=== PATIENT | female | born 1970 | race Caucasian/White ===

== ENCOUNTER 2017-05-13 08:15 | Observation (INO) | payer OTHER ==
--- NOTE | 2017-04-28 12:32 | DIAGNOSTIC IMAGING REPORT ---
CHEST 2 VIEWS ROUTINE CLINICAL HISTORY: PRE-OP COMPARISON STUDY: 05/27/2016 FINDINGS: Chronic basilar fibrotic change. No evidence for cardiac enlargement. Diaphragms smooth. Upper lungs are clear. IMPRESSION: Chronic change. No acute process. Electronically signed by: Nilesh Jama M.D. 04/28/2017 12:31 PM Dictated Date/Time: 04/28/2017 12:30 PM
[2017-04-28 13:09] LABS: BASO % 0.4 %; BASO ABS # 0.03 K/uL (0-0.2); COMPLETE YES; EOS % 2.8 %; HEMATOCRIT 44.6 % (37-47); IG% 0.1 %; LYMPH % 36.1 %; LYMPH ABS # 2.47 K/uL (1.2-3.4); MEAN CELL VOLUME 94.1 fL (80-100); MEAN CORPUSCULAR HEMOGLOBIN 31.4 pg (25-34); MEAN CORPUSCULAR HGB CONC 33.4 g/dl (32-36); MEAN PLATELET VOLUME 10.7 fL (7.4-10.4); MONO % 5.1 %; NEUT % 55.5 %; PLATELET COUNT 220 K/uL (130-400); RED BLOOD COUNT 4.74 M/uL (4.2-5.4); WHITE BLOOD COUNT 6.85 K/uL (4.8-10.8)
[2017-04-28 13:19] LABS: INR 1.1 (0.9-1.1); PARTIAL THROMBOPLASTIN RATIO 1.4; PROTHROMBIN TIME (PATIENT) 11.5 SECONDS (9.0-12.0)
[2017-04-28 13:20] LABS: BLOOD UREA NITROGEN 9 mg/dl (7-18); BUN/CREATININE RATIO 12.8 (10-20); CALCIUM 8.7 mg/dl (8.5-10.1); CARBON DIOXIDE 28 mmol/L (21-32); CHLORIDE 105 mmol/L (98-107); CREATININE 0.72 mg/dl (0.60-1.20); GLUCOSE 123 mg/dl (70-99); POTASSIUM 3.8 mmol/L (3.5-5.1); SODIUM 139 mmol/L (136-145)
[2017-04-28 13:28] LABS: URINE APPEARANCE CLEAR (CLEAR); URINE BILIRUBIN NEG (NEG); URINE COLOR DK YELLOW; URINE NITRITE NEG (NEG); URINE SPECIFIC GRAVITY 1.027 (1.000-1.030); UROBILINOGEN NEG (NEG)
[2017-04-28 13:29] LABS: MANUAL MICROSCOPIC REQUIRED? NO; REVIEW REQ? NO
[2017-05-10 12:10] VITALS: BMI 46.0
[2017-05-10 12:25] VITALS: BMI 46.0
[2017-05-13] VITALS (9 sets, daily range): BP systolic 116–157; BP diastolic 66–85; PULSE 67–91; TEMP 36.5–36.7; O2SAT 90–96; Ht 172.7 cm; Wt 136.4 kg
[~2017-05-13] VITALS: Ht 172.7 cm; Wt 136.4 kg
[~2017-05-13 08:15] MED LIST: ABL10 PO; CEFAZOLIN 3000 MG/65 ML D5W 65 ML IV SCH; CHOL1000 PO; CLON0.5T3 PO; CLON1TAB3 PO; FLUO20CA35 PO; GABA-113 PO; GLIP-197 PO; LACTATED RINGER'S 1000ML 1,000 ML IV SCH; LIRA18IN INJ; METH500T37 PO; NAPR-998 PO; NAPR1TAB9 PO; NSS 1000ML IV SCH; OMEG10007 PO; PANT40TA PO; SCOPOLAMINE 1.5 MG TDSY TD SCH; SITA100T3 PO
[2017-05-13] MEDS ORDERED: KETAMINE HCL INJ 50 MG/ML 10 ML VIAL ONE (08:53)
[2017-05-13] MEDS ORDERED: MIDAZOLAM HCL 1 MG/ML 2ML VIAL ONE (08:53)
[2017-05-13] MEDS ORDERED: HYDROmorphone INJ 2 MG/ML SYR/VIAL ONE (08:53)
[2017-05-13] MEDS ORDERED: FENTANYL CITRATE INJ 50 MCG/1 ML 2 ML VIAL ONE (08:53)
[2017-05-13] MEDS ORDERED: NURSING VERBAL MED ORDER ONE (10:00)
[2017-05-13] MEDS ORDERED: SCOPOLAMINE 1.5 MG TDSY TD ONE (10:01)
[2017-05-13] MEDS ORDERED: THROMBIN FOR SOLN 20000 UNIT KIT ONE ×2 (10:11→11:09)
[2017-05-13] MEDS ORDERED: GELATIN SPONGE SZ 100 ONE ×2 (10:11→11:09)
[2017-05-13] MEDS ORDERED: VANCOMYCIN HCL 1000MG/20ML VIAL ONE (10:11)
--- NOTE | 2017-05-13 10:11 | History and Physical ---
History & Physical Date May 13, 2017. Chief Complaint Back lower extremity difficulty paresthesias numbness tingling weakness History of Present Illness The patient is a 47 year old female with complaints of her extremity weakness paresthesias loss of sensation and loss of strength to lower extremities. A progressive neurological deficit Additional History Hepatic Disease: No Endocrine Disorder: Yes Kidney Disease: No Hypertension: Yes Heart Disease: No Bleeding Tendencies: No Infectious Diseases: No Allergies Coded Allergies: Adhesives (Verified Allergy, Intermediate, RASH BLISTERS (INCLUDES PAPER TAPE), 05/13/17) NO KNOWN DRUG ALLERGIES (Verified Allergy, Unknown, NKDA, 05/13/17) Home Medications Scheduled Aripiprazole (Abilify), 1 TAB PO QPM Cholecalciferol (Vitamin D3), 1 TAB PO QAM Clonazepam (Klonopin), 0.5 MG PO QAM Clonazepam (Klonopin), 1.5 MG PO QPM Fluoxetine (Prozac), 20 MG PO QAM Glipizide (Glipizide Er), 10 MG PO QAM Liraglutide (Victoza), 0.6 MG INJ QAM Naproxen (Aleve), 220 MG PO PRN Naproxen Sodium-Diphenhydramin (Aleve Pm 220-25 mg), 2 TAB PO HS Pantoprazole (Protonix), 40 MG PO QAM Sitagliptin Phosphate (Januvia), 100 MG PO QAM Scheduled PRN Gabapentin (Neurontin), 300 MG PO BID PRN for PRN Methocarbamol (Robaxin), 500 MG PO TID PRN for Muscle Spasms Physical Examination Skin: warm/dry, no rash Eyes: normal inspection ENT: normal ENT inspection Head: normocephalic Neck: no adenopathy Respiratory/Chest: lungs clear Cardiovascular: regular rate, rhythm Abdomen / GI: normal bowel sounds Back: normal inspection Extremities: + pertinent finding (extremity weakness in the quadriceps area dorsiflexes her feet plantar fracture flexors of feet and hamstrings sensation. Decreased reflexes to the knee jerk and Achilles reflexes bilaterally) Diagnosis Severe spinal stenosis of the lumbar spine from L3 to S1 ASA Classification: ASA Class III Plan of Treatment Decompression laminectomy lumbar spine L3 to S1 under general anesthetic
[2017-05-13] MEDS ORDERED: BACITRACIN 50000 UNIT VIAL ONE (10:12)
[2017-05-13] MEDS ORDERED: ACETAMINOPHEN 1000 MG/100 ML IV IV ONE (10:12)
[2017-05-13] MEDS ORDERED: BUPIVACAINE 0.5 % 5 MG/1 ML MPF 30ML VIAL ONE (10:13)
--- NOTE | 2017-05-13 10:20 | History & Physical Bridge Note ---
H&P Re-Evaluation Bridge Note: I have examined the patient, reviewed the History & Physical and in the interval since the performance of the History & Physical I have noted the following changes of clinical significance: No changes noted; The procedure will be: Laminectomy L3-S1 as scheduled possible fusion.
[2017-05-13] MEDS ORDERED: PHENYLEPHRINE 100MCG/ML 5ML SYR IV PRN (11:00)
[2017-05-13] MEDS ORDERED: NALOXONE HCL 0.4 MG/1 ML VIAL/CARP IV PRN (11:00)
[2017-05-13] MEDS ORDERED: HYDROmorphone INJ 1 MG/ML SYR IV PRN ×2 (11:00→12:45)
[2017-05-13] MEDS ORDERED: EpHEDrine SULFATE INJ 50 MG/ML AMP IV PRN (11:00)
[2017-05-13] MEDS ORDERED: ONDANSETRON INJ 2 MG/ML 2 ML VIAL IV PRN ×2 (11:00→12:45)
[2017-05-13] MEDS ORDERED: MoRPHine SULFATE 10 MG/ML CARP/VIAL IV PRN (11:00)
[2017-05-13] MEDS ORDERED: LABETALOL HCL IV 5 MG/ML 20ML IV PRN (11:00)
[2017-05-13] MEDS ORDERED: MEPERIDINE HCL 25 MG/ML CARP IV PRN (11:00)
[2017-05-13] MEDS ORDERED: FLUMAZENIL 0.1 MG/1 ML 10 ML VIAL IV PRN (11:00)
[2017-05-13] MEDS ORDERED: ATROPINE SULFATE 0.1 MG/ML 5ML SYR IV PRN (11:00)
[2017-05-13] MEDS ORDERED: PROPOFOL IV EMULSION 10 MG/ML 20 ML VIAL IV ONE (11:43)
[2017-05-13] MEDS ORDERED: ONDANSETRON INJ 2 MG/ML 2 ML VIAL ONE (11:43)
[2017-05-13] MEDS ORDERED: SUCCINYLCHOLINE CHLORIDE 20 MG/ML 10 ML VIAL IV ONE (11:43)
[2017-05-13] MEDS ORDERED: NEOSTIGMINE METHYLSULFATE 5 MG/5 ML SYR ONE (11:43)
[2017-05-13] MEDS ORDERED: ROCURONIUM BROMIDE 10 MG/ML 5 ML VIAL ONE (11:43)
[2017-05-13] MEDS ORDERED: DiphenhydrAMINE HCL 50 MG/ML VIAL ONE (11:43)
[2017-05-13] MEDS ORDERED: DEXAMETHASONE SOD INJ 4 MG/ML VIAL ONE (11:43)
[2017-05-13] MEDS ORDERED: LIDOCAINE HCL 2% 2 ML VIAL (20MG/ML) ONE (11:43)
[2017-05-13] MEDS ORDERED: GLYCOPYRROLATE INJ 0.2 MG/ML VIAL ONE (11:43)
[2017-05-13] MEDS ORDERED: PHENYLEPHRINE HCL INJ 10 MG/ML VIAL ONE (11:43)
[2017-05-13] MEDS ORDERED: METOCLOPRAMIDE HCL INJ 5 MG/ML 2 ML VIAL ONE (11:43)
[2017-05-13] MEDS ORDERED: LARYING-O-JET KIT (LTA) ONE ×2 (12:12)
[2017-05-13] MEDS ORDERED: MAGNESIUM HYDROXIDE SUSP 30 ML UDC PO PRN (12:45)
[2017-05-13] MEDS ORDERED: PROMETHAZINE HCL INJ 12.5 MG in SODIUM CHLORIDE 0.9% 50ML 50 ML IV PRN (12:45)
[2017-05-13] MEDS ORDERED: HYDROmorphone INJ 2 MG/ML SYR/VIAL IV PRN (12:45)
[2017-05-13] MEDS ORDERED: LORAZEPAM 1 MG TAB PO PRN (12:45)
[2017-05-13] MEDS ORDERED: LORAZEPAM INJ 1 MG in SYRINGE 0 ML IV PRN (12:45)
[2017-05-13] MEDS ORDERED: OXYCODONE/ACETAMINOPHEN 5-325 TAB PO PRN (12:45)
[2017-05-13] MEDS ORDERED: ACETAMINOPHEN 325 MG TAB PO PRN (12:45)
[2017-05-13] MEDS ORDERED: METOCLOPRAMIDE HCL INJ 5 MG/ML 2 ML VIAL IV PRN (12:45)
--- NOTE | 2017-05-13 12:53 | [facility] Operative Report ---
Operative Report Operative Date May 13, 2017. Pre-Operative Diagnosis Severe spinal stenosis of the lumbar spine from L3 to S1 Post-Operative Diagnosis Severe spinal stenosis of the lumbar spine from L3 to S1 Procedure(s) Performed L3-L4, L4-L5, L5-S1 Laminectomy and Fusion; [address] Geraldo Michael Last Model Department Supervisor Surgeon(s) Leonard Scott PA-C Estimated Blood Loss 340mL Findings Severe stenosis L3 to S1 Specimens None Drains one Hemovac drain Complication(s) None No complications Disposition Recovery Room / PACU Indications Severe spinal stenosis inability to ambulate without pain swelling legs giving way Description of Procedure She was taken to the operating room and general intubated anesthetic provided the patient placed prone on the Robi table. Scrubbed and prepped draped sterile. Middle midline incision from 3 to sacrum dissecting a soft tissue putting a deep self retraining retractor. We decompressed the neural elements L3 down to sacrum foraminotomies partial facetectomies all nerve roots were free of obstruction. There were no complications. Probed each and every nerve root there was no pressure. Irrigated with approximately 800 mL of fluid from a prophylactic measure placed DuraSeal on the dura Gelfoam vancomycin powder Clozaril Hemovac drain with 20 with 1 Vicryl suture to THE SUBCUTICULAR LAYER 3-0 NYLON ON THE SKIN. STERILE DRESSINGS APPLIED RETURNED TO PACU PROVED STABLE CONDITION AND NO COMPLICATIONS SPONGE AND NEEDLE COUNT CORRECT AT THE CLOSE I attest to the content of the Intraoperative Record and any orders documented therein. Any exceptions are noted below.
[2017-05-13] MEDS ORDERED: GABAPENTIN 300 MG CAP PO PRN (13:00)
--- NOTE | 2017-05-13 13:16 | DIAGNOSTIC IMAGING REPORT ---
SPINE ONE VIEW, ANY LEVEL HISTORY: Laminectomy. Fusion.. FLUOROSCOPY TIME: 4 seconds. FINDINGS: Intraoperative fluoroscopy was provided for the lumbar spine. 2 fluoroscopic spot images were obtained. IMPRESSION: Fluoroscopy provided for a lumbar laminectomy. The above report was generated using voice recognition software. It may contain grammatical, syntax or spelling errors. Electronically signed by: Nilesh Jama M.D. 05/13/2017 1:15 PM Dictated Date/Time: 05/13/2017 1:14 PM
[2017-05-13] MEDS ORDERED: NALOXONE HCL 0.4 MG/1 ML VIAL/CARP ONE (13:20)
[2017-05-13] MEDS ORDERED: IV FLUIDS COMPLETED PRN (14:00)
--- NOTE | 2017-05-13 14:04 | Anesthesiology Progress Note ---
Anesthesia Post Op Note Date & Time May 13, 2017 at 14:04 Vital Signs Pain Intensity: 1 Vital Signs Past 12 Hours Date Time Temp Pulse Resp B/P (MAP) Pulse Ox O2 Delivery O2 Flow Rate FiO2 05/13/17 13:55 36.9 93 16 141/69 94 Nasal Cannula 4 05/13/17 13:45 36.9 90 16 134/90 94 Nasal Cannula 4 05/13/17 13:30 88 16 126/88 94 Mask 10 05/13/17 13:20 91 16 139/94 95 Mask 15 05/13/17 13:10 88 16 150/88 100 Mask 15 05/13/17 13:01 36.5 89 16 169/88 100 Mask 15 05/13/17 09:15 36.7 84 20 157/85 92 Room Air Notes Mental Status: alert / awake / arousable, participated in evaluation Pt Amnestic to Procedure: Yes Nausea / Vomiting: adequately controlled Pain: adequately controlled Airway Patency, RR, SpO2: stable & adequate BP & HR: stable & adequate Hydration State: stable & adequate Anesthetic Complications: no major complications apparent
[2017-05-13] MEDS: SODIUM CHLORIDE 0.9% 1000ML 1,000 ML IV SCH (15:04)
[2017-05-13] MEDS: KETOROLAC TROMETHAMINE 30 MG/ML VIAL IV SCH ×2 (15:32→21:22)
[2017-05-13] MEDS ORDERED: CHECK SCOPOLAMINE PATCH PLACEMENT SCH (16:00)
[2017-05-13] MEDS: CEFAZOLIN IV 1,000 MG in DEXTROSE 5% 50ML 50 ML IV SCH (18:15)
--- NOTE | 2017-05-13 18:57 | Medical Consult ---
Consultation Date of Consultation: May 13, 2017. Attending Physician: Geraldo Michael DO Reason for Consultation: Medical Management History of Present Illness Ms. Devlin is a 47 y/o female with PMHx of T2DM, Depression/Anxiety, S/P Partial Hysterectomy, and Possible Hemorrhoids who is S/P Laminectomy and Fusion of L3-S1 by Dr. Michael on 05/13. No complications during the surgery noted. Patient reports some nausea early but currently resolved and is currently eating dinner. She is alert and oriented but is drowsy. She reports no pain but has bilateral numbness down her legs with the R worse then the L. She denies all other complaints. She reports she has had rectal bleeding in the past and continues to have this intermittently. Stated she has had unremarkable colonoscopies and thinks she just has hemorrhoids. She also had a partial hysterectomy due to menorrhagia/metrorrhagia. She has had intermittent high BPs but denies official diagnosis of HTN or being prescribed anti-hypertensives. She denies H/O DC, CHF, DVT/PE. Past Medical/Surgical History 1. T2DM 2. Depression/Anxiety 3. S/P Partial Hysterectomy 4. S/P Cholecystectomy 5. Hemorrhoids Family History Diabetes mellitus Hypertension Social History Smoking Status: Current Every Day Smoker Smokeless Tobacco Use: No Alcohol Use: socially Drug Use: none Marital Status: single Housing Status: lives alone Allergies Coded Allergies: Adhesives (Verified Allergy, Intermediate, RASH BLISTERS (INCLUDES PAPER TAPE), 05/13/17) NO KNOWN DRUG ALLERGIES (Verified Allergy, Unknown, NKDA, 05/13/17) Current Inpatient Medications Current Inpatient Medications Medications (Trade) Dose Ordered Sig/Basilio Route Start Time Stop Time Status Last Admin Dose Admin Miscellaneous (Remove Transderm-Scop Patch) 1 ea Q72H N/A 05/16/17 06:00 05/16/17 06:01 Miscellaneous Information (Check Scopolamine Patch Placement) 1 ea QS N/A 05/13/17 16:00 05/13/17 23:59 05/13/17 15:32 1 EA Acetaminophen (Tylenol Tab) 650 mg Q6H PRN PO 05/13/17 12:45 06/12/17 12:44 Hydromorphone HCl (Dilaudid Inj) 1 mg Q3H PRN IV 05/13/17 12:45 05/27/17 12:44 Hydromorphone HCl (Dilaudid Inj) 1.5 mg Q3H PRN IV 05/13/17 12:45 05/27/17 12:44 Ketorolac Tromethamine (Toradol Inj) 30 mg Q6H IV 05/13/17 16:00 05/14/17 16:01 05/13/17 15:32 30 MG Promethazine HCl 12.5 mg/Sodium Chloride 50.5 ml @ 202 mls/hr Q6H PRN IV 05/13/17 12:45 06/12/17 12:44 Ondansetron HCl (Zofran Inj) 4 mg Q6H PRN IV 05/13/17 12:45 06/12/17 12:44 05/13/17 15:33 4 MG Metoclopramide HCl (Reglan Inj) 10 mg Q6H PRN IV 05/13/17 12:45 06/12/17 12:44 Polyethylene (Miralax Powder Packet) 17 gm DAILY PO 05/14/17 09:00 06/13/17 08:59 Bisacodyl (Dulcolax Tab) 5 mg DAILY PRN PO 05/14/17 06:00 06/13/17 05:59 Bisacodyl (Dulcolax Supp) 10 mg DAILY PRN IN 05/14/17 06:00 06/13/17 05:59 Magnesium Hydroxide (Milk Of Magnesia Susp) 30 ml DAILY PRN PO 05/13/17 12:45 06/12/17 12:44 Diphenhydramine HCl (Benadryl Cap) 25 mg Q6H PRN PO 05/13/17 12:45 06/12/17 12:44 Oxycodone/ Acetaminophen (Percocet 5-325mg Tab) 1 tab Q4H PRN PO 05/13/17 12:45 05/27/17 12:44 Oxycodone/ Acetaminophen (Percocet 5-325mg Tab) 2 tab Q4H PRN PO 05/13/17 12:45 05/27/17 12:44 Cefazolin Sodium 1000 mg/Dextrose 55 ml @ 100 mls/hr Q8H IV 05/13/17 18:00 05/14/17 10:32 7/13/17 18:15 100 MLS/HR Sodium Chloride 1,000 ml @ 80 mls/hr [id number] IV 05/13/17 15:00 06/12/17 14:59 05/13/17 15:04 80 MLS/HR Aripiprazole (Abilify Tab) 10 mg QPM PO 05/13/17 21:00 06/12/17 20:59 Cholecalciferol (Vitamin D Tab) 1,000 inter.unit QAM PO 05/14/17 09:00 06/13/17 08:59 Clonazepam (Klonopin Tab) 0.5 mg QAM PO 05/14/17 09:00 06/13/17 08:59 Clonazepam (Klonopin Tab) 1.5 mg QPM PO 05/13/17 21:00 06/12/17 20:59 Fluoxetine HCl (Prozac Cap) 20 mg QAM PO 05/14/17 09:00 06/13/17 08:59 Gabapentin (Neurontin Cap) 300 mg BID PRN PO 05/13/17 13:00 06/12/17 12:59 Pantoprazole Sodium (Protonix Tab) 40 mg QAM PO 05/14/17 09:00 06/13/17 08:59 Sitagliptin Phosphate (Januvia Tab) 100 mg QAM PO 05/14/17 09:00 06/13/17 08:59 Glipizide (GlipiZIDE EXTENDED REL TAB) 10 mg QAM PO 05/14/17 09:00 06/13/17 08:59 Miscellaneous Information (Order Awaiting Action) 1 ea QS N/A 05/13/17 16:00 06/12/17 15:59 Miscellaneous (Iv Fluids Completed) 1 ea PRN PRN N/A 05/13/17 14:00 05/13/18 13:59 Review of Systems Constitutional: No fever, No chills Eyes: No worsening of vision ENT: No nasal symptoms, No sore throat, No trouble swallowing Respiratory: No cough, No shortness of breath Cardiovascular: No chest pain Abdomen: + GI bleeding (intermittent BRBPR related to hemorrhoids), No pain, No nausea, No vomiting, No diarrhea, No constipation Genitourinary - Female: No dysuria Neurologic: + numbness/tingling (R > L lower extremity) Hematologic / Lymphatic: No abnormal bleeding/bruising, No clotting problems Integumentary: No rash, No new/changing skin lesions Physical Exam Date Time Temp Pulse Resp B/P (MAP) Pulse Ox O2 Delivery O2 Flow Rate FiO2 05/13/17 16:09 36.5 71 16 116/66 (83) 90 Oxymask 4.0 05/13/17 15:30 Nasal Cannula 4.0 05/13/17 15:15 36.5 67 16 117/73 (88) 93 Nasal Cannula 4.0 05/13/17 14:39 36.7 91 18 144/78 (100) 94 Nasal Cannula 4.0 05/13/17 14:34 94 Nasal Cannula 4.0 05/13/17 14:16 94 Nasal Cannula 4.0 05/13/17 14:11 36.6 89 14 133/78 (96) 96 Nasal Cannula 4.0 05/13/17 13:55 36.9 93 16 141/69 94 Nasal Cannula 4 05/13/17 13:45 36.9 90 16 134/90 94 Nasal Cannula 4 05/13/17 13:30 88 16 126/88 94 Mask 10 05/13/17 13:20 91 16 139/94 95 Mask 15 05/13/17 13:10 88 16 150/88 100 Mask 15 05/13/17 13:01 36.5 89 16 169/88 100 Mask 15 05/13/17 09:15 36.7 84 20 157/85 92 Room Air General Appearance: WD/WN, no apparent distress, + obese, + pertinent finding ( mcfadden-like face;hirsutism) Head: normocephalic, atraumatic Eyes: sclerae normal ENT: hearing grossly normal Neck: supple, no JVD, trachea midline Respiratory/Chest: lungs clear, normal breath sounds, no respiratory distress, no accessory muscle use Cardiovascular: regular rate, rhythm, no gallop, no murmur Abdomen/GI: normal bowel sounds, non tender, soft Extremities/Musculoskelatal: + pertinent finding (subjective numbness/sensory deficit in R > L lower extremity; pulses +2 bilat; motor function intact) Neurologic/Psych: alert, oriented x 3, + pertinent finding (drowsy) Skin: normal color, warm/dry Laboratory Results Last 24 Hours Test 05/13/17 08:57 Bedside Glucose 108 mg/dl Assessment & Plan Ms. Devlin is a 47 y/o female with PMHx of T2DM, Depression/Anxiety, S/P Partial Hysterectomy, and Possible Hemorrhoids who is S/P Laminectomy and Fusion of L3-S1 by Dr. Michael on 05/13. S/P Laminectomy and Fusion of L3-S1 by Dr. Michael on 05/13: - IVF, Pain Management, DVT Prophylaxis, PT/OT per primary team T2DM: - Last A1c in records from 2016 is 8 - will defer further monitoring to PCP - Hold Victoza due to non-formulary and continue Glipizide 10 mg daily and Januvia 100 mg daily and cover with SSI per parameters Depression/Anxiety: - Continue Abilify, Prozac, and Klonopin H/O Hemorrhoids and BRBPR: Intermittent Issue - Reports previous colonoscopy that was unremarkable and states she thinks she has hemorrhoids - does have a history of menorrhagia/metrorrhagia but reports no issue since hysterectomy - Monitor CBC Disposition: - Patient reports she is having a hospital bed delivered to her home and states she will call prior to being discharged Resident Physician Supervision Note: I was present with Kathy SPEAR during the history and exam. I discussed the case with the PA and pt and agree with the findings and plan as documented in the note. Any exceptions or clarifications are listed here: 47 y/o F morbidly obese, anx/depression, DM, smoker - post lumbar laminectomy Recovered well - sitting up - no complaints and requested DC OE AAO x 3 S1,2 R CTAB NT, ND, BS+ No CCE P: From a medical standpoint the pt is stable - should continue all her psychoactive meds sliding scale placed for DM Pain is well controlled Will follow pending as needed for any complications or outstanding issues - will sign off at present Documented By: Max Garces
[2017-05-13] MEDS ORDERED: GLUCAGON FOR INJ 1 MG VIAL SQ PRN (19:00)
[2017-05-13] MEDS ORDERED: GLUCOSE 40% GEL 15 GM TUBE PO PRN (19:00)
[2017-05-13] MEDS ORDERED: DEXTROSE 50% 50 ML SYR IV PRN (19:00)
[2017-05-13] MEDS ORDERED: GLUCOSE 10 TABS/TUBE PO PRN (19:00)
[2017-05-13] MEDS: INSULIN ASPART 100 UNITS/ML 3 ML PEN SC SCH (21:17)
[2017-05-13] MEDS: CLONAZEPAM 1 MG TAB PO SCH (21:17)
[2017-05-13] MEDS: ARIPIprazole TAB 10 MG TAB PO SCH (21:18)
[2017-05-14] VITALS (8 sets, daily range): BP systolic 107–142; BP diastolic 64–82; PULSE 69–76; TEMP 36.6–36.8; O2SAT 92–96
[2017-05-14] MEDS: CEFAZOLIN IV 1,000 MG in DEXTROSE 5% 50ML 50 ML IV SCH ×2 (01:26→09:51)
[2017-05-14] MEDS: KETOROLAC TROMETHAMINE 30 MG/ML VIAL IV SCH ×3 (03:16→16:09)
[2017-05-14] MEDS: SODIUM CHLORIDE 0.9% 1000ML 1,000 ML IV SCH ×3 (03:16→22:15)
[2017-05-14] MEDS ORDERED: BISACODYL 10 MG SUPP PR PRN (06:00)
[2017-05-14] MEDS ORDERED: BISACODYL 5 MG TABEC PO PRN (06:00)
[2017-05-14 06:08] LABS: HEMATOCRIT 37.6 % (37-47)
--- NOTE | 2017-05-14 07:46 | Anesthesiology Progress Note ---
Anesthesia Post Op Note Date & Time May 14, 2017 at 07:45 Vital Signs Pain Intensity: 0.0 Vital Signs Past 12 Hours Date Time Temp Pulse Resp B/P (MAP) Pulse Ox O2 Delivery O2 Flow Rate FiO2 05/14/17 07:20 95 Room Air 1.0 05/14/17 03:58 36.7 69 16 113/68 (83) 95 Room Air 05/13/17 23:03 36.6 86 18 143/80 (101) 93 Nasal Cannula 1.0 Notes Mental Status: alert / awake / arousable, participated in evaluation Pt Amnestic to Procedure: Yes Nausea / Vomiting: adequately controlled Pain: adequately controlled Airway Patency, RR, SpO2: stable & adequate BP & HR: stable & adequate Hydration State: stable & adequate Anesthetic Complications: no major complications apparent
--- NOTE | 2017-05-14 08:05 | Discharge Instructions ---
Discharge Instructions Date of Service May 14, 2017. Admission Reason for Admission: Lumbar Spinal Stenosis Discharge Discharge Diagnosis / Problem: severe stenosis Discharge Goals Goal(s): Improve function Activity Recommendations Activity Limitations: as noted below May Resume Sexual Activity: after follow-up appointment Shower/Bathe: keep incision dry . Instructions / Follow-Up Instructions / Follow-Up MEDICATIONS: Please take your prescriptions as instructed at your pre-op appointment. SPECIAL CARE: The following information is intended to answer some of the common questions and concerns regarding your surgery. Each patient is an individual and receives individual counselling throughout the course of treatment, from diagnosis to surgery all the way through recovery. What follows is not an exhaustive list, but should be a useful guide to some of the common questions and concerns patients have regarding their surgeries. These are not provided to keep you from calling us; rather, they give you something accurate and concrete to reference as you recover from your procedure. If you need us, we are available to you. As always, if you are not sure about something, call us at [phone]. MEDICAL EMERGENCIES: For these conditions, call 911 or go to your local hospital-based Emergency Department - not [facility] or equivalent. * Paralysis * Severe chest pain or difficulty breathing * Swelling or redness of either leg Spine procedures can be rather complex and though complications are rare, they do occur. In such cases, effective advice regarding emergency situations cannot always be addressed over the telephone. You may be referred to the emergency department for more effective management of your problem. Activity Limitations: It is important to give your body time to heal, so please limit your activities : * In general, don't do anything that moves your spine too much. You should avoid contact sports, twisting or heavy lifting while you recover. * 5-10 pounds is all you should attempt to lift. * You should not plan on driving for approximately 3 weeks and you should avoid traveling more than 30-45 minutes at a time. Longer trips should be broken down with walking breaks spaced appropriately. * Physical therapy is not usually required. * Walking and good posture practices will help you recover and regain your function. * Avoid straining or sudden changes in position. * In general, the goal is to take it easy and recover. Don't cause any new problems. Just relax. Showers: * Do not take a bath, use a Jacuzzi or hot tub or otherwise submerge your incision. * It is usually safe to take a shower 4-5 days after your surgery. * Your incision does not require any special creams or ointments. * Simply clean it with soap and water, dry and re-dress with a clean bandage afterwards. Incision: * Keep incision clean, dry and protected until your first follow-up appointment. * Some amount of drainage and redness is normal. Any drainage should be fairly clear and not have a foul odor. * If you feel anything is wrong or you have excessive drainage, please call us. * Your stitches and roland will be removed 10-14 days after your surgery. At the time of your first post-op visit. * Neck surgeries are typically closed with a suture underneath the skin. The steri-strips over the incision should be maintained until we see you in the office. Bracing: * You may be provided with a back or neck brace to encourage good posture and prevent injury. It will remind you not to do too much as you heal and will alert others to the fact that you have had a surgery. * Back braces may be removed for showers and when you are resting at home. They must be worn when you are walking around for any period of time or for travel. * For neck surgery, you will likely be provided with two cervical collars. The soft collar ([place] or foam rubber) is worn most commonly throughout the day and while sleeping. The plastic collar (provided at the hospital) is for showering/bathing. * Except while eating, collars should remain in place. More specifically, bracing is provided for a purpose and should be worn. * Please obtain your brace or collars prior to your operation and bring them to the hospital with you on the day of surgery. * You should also bring your collars to your post-op appointment with Dr. Michael. You should always take good care of your body and practice healthy habits, especially following surgery. You should: * Follow your doctor's treatment plan * Sit and stand properly with good posture (ears over shoulders, shoulders over hips) Don't slouch * Learn to lift correctly * Exercise regularly (low-impact aerobic exercise is especially good, but check with your doctor first) * Generally, be up and walking for 5-10 minutes at a time at least 3-4 times per day from the day you get home * Increasing walking to tolerance until you can walk for 20-30 minutes at a time * Attain and maintain a healthy body weight * Eat healthy foods ( a well-balanced, low-fat diet rich in fruits and vegetables) and get enough calcium * Avoid excessive use of alcohol When to call our office - If you notice any of the following: * Increased pain not relieve by pain medicine * Fevers greater then 100 degrees F, chills or flu symptoms * Increased redness around incision * Drainage from the incision that is not clear * Any foul smelling drainage * Swelling or fluid collection beneath the skin Miscellaneous: * In the hospital, you may be given a walker or cane for support while walking. These are temporary needs and are intended to prevent injuries due to falls. You may discontinue them when you feel strong and steady enough on your feet. * Sleep in a comfortable position. We find that many patients find a lounge chair or recliner with several pillows to be beneficial in the early post-operative period. * The support stockings should be used for 7-10 days and may be discontinued when you are back to walking more and conducting usual household activities. No problem is insignificant. We are here to help you and get you well. Contact us at [phone]. Definitions: Foraminotomy: If part of the disc or a bone spur (osteophyte) is pressing on a nerve as it leaves the vertebra (through an exit called the foramen), a foraminotomy may be done. Otomy means "to make an opening." A foraminotomy is making the opening of the foramen larger, so the nerve can exit without being compressed. Laminotomy: Similar to the foraminotomy, a laminotomy makes a larger opening, this time in your bony plate protecting your spinal canal and spinal cord (the lamina). The lamina may be pressing on your nerve, so the surgeon may make more room for the nerves using a laminotomy. Laminectomy: Sometimes, a laminotomy is not sufficient. The surgeon may need to remove all or part of the lamina. This procedure is called a laminectomy. This can often be done at many levels without any harmful effects. Current Hospital Diet Patient's current hospital diet: Diabetes Type 2 Diet Discharge Diet Recommended Diet: Regular Diet, Diabetes Type 2 Diet Procedures Procedures Performed: L3-L4, L4-L5, L5-S1 Laminectomy and Fusion; 4 level Pending Studies Studies pending at discharge: no Medical Emergencies . Who to Call and When: Medical Emergencies: If at any time you feel your situation is an emergency, please call 911 immediately. . Non-Emergent Contact Non-Emergency issues call your: Surgeon . "Provider Documentation" section prepared by Geraldo Michael. . VTE Core Measure Inpt VTE Proph given/why not?: Treatment not indicated
[2017-05-14] MEDS: FLUOXETINE HCL 20 MG CAP PO SCH (08:18)
[2017-05-14] MEDS: CHOLECALCIFEROL 1000 INTER.UNIT TAB PO SCH (08:18)
[2017-05-14] MEDS: PANTOprazole SOD 40 MG TAB PO SCH (08:19)
[2017-05-14] MEDS: SITAGLIPTIN 100 MG TAB PO SCH (08:19)
[2017-05-14] MEDS: POLYETHYLENE (MIRALAX) 17 GM PACK PO SCH (08:19)
[2017-05-14] MEDS: CLONAZEPAM 0.5 MG TAB PO SCH (08:26)
[2017-05-14] MEDS: INSULIN ASPART 100 UNITS/ML 3 ML PEN SC SCH ×4 (08:26→21:46)
[2017-05-14] MEDS: OXYCODONE/ACETAMINOPHEN 5-325 TAB PO PRN (12:19)
[2017-05-14 15:09] LABS: BLOOD UREA NITROGEN 15 mg/dl (7-18); BUN/CREATININE RATIO 16.8 (10-20); CALCIUM 8.3 mg/dl (8.5-10.1); CARBON DIOXIDE 23 mmol/L (21-32); CHLORIDE 108 mmol/L (98-107); CREATININE 0.88 mg/dl (0.60-1.20); GLUCOSE 125 mg/dl (70-99); SODIUM 139 mmol/L (136-145)
[2017-05-14] MEDS: CLONAZEPAM 1 MG TAB PO SCH (22:13)
[2017-05-14] MEDS: ARIPIprazole TAB 10 MG TAB PO SCH (22:13)
[2017-05-15] MEDS: SODIUM CHLORIDE 0.9% 1000ML 1,000 ML IV SCH (05:32)
[2017-05-15] MEDS: OXYCODONE/ACETAMINOPHEN 5-325 TAB PO PRN ×2 (05:33→13:14)
[2017-05-15 06:55] VITALS: BP 133/79; PULSE 76; TEMP 36.7; O2SAT 94
[2017-05-15] MEDS: INSULIN ASPART 100 UNITS/ML 3 ML PEN SC SCH ×2 (08:00→12:00)
[2017-05-15] MEDS: SITAGLIPTIN 100 MG TAB PO SCH (09:03)
[2017-05-15] MEDS: PANTOprazole SOD 40 MG TAB PO SCH (09:04)
[2017-05-15] MEDS: FLUOXETINE HCL 20 MG CAP PO SCH (09:04)
[2017-05-15] MEDS: CHOLECALCIFEROL 1000 INTER.UNIT TAB PO SCH (09:04)
[2017-05-15] MEDS: POLYETHYLENE (MIRALAX) 17 GM PACK PO SCH (09:05)
--- NOTE | 2017-05-15 09:06 | Discharge Summary ---
Orthopedic Discharge Summary Admission Date/Reason May 13, 2017 at 09:10 Lumbar Spinal Stenosis. Discharge Date/Disposition May 15, 2017 Home Diagnosis Principal Diagnosis: Severe spinal stenosis Secondary Diagnoses/Problems: Morbid obesity Procedure(s) Performed Laminectomy L3 to S1 Consultations Medical consultation Medication Reconciliation [place] 10 mg for pain. Patient is to resume all medications prior to admission Admission Physical Exam As per Admitting History & Physical. Hospital Course Patient had surgery May. Severe spinal stenosis of the spine. Decompressed neural elements there were no complications. She was admitted to the hospital post surgery ambulating date Tara date 2 stable. She had no confusion no chest pain shortness of breath successfully discharged home improved stable condition complications. Discharge Instructions Please refer to the electronic Patient Visit Report (Discharge Instructions) for additional information.
[2017-05-15] MEDS: CLONAZEPAM 0.5 MG TAB PO SCH (09:08)
[2017-05-15 11:29] VITALS: BP 133/79; PULSE 76; TEMP 36.7; O2SAT 94
== END 2017-05-15 13:51 | disposition home health service (06) ==
LOC: C.ACU 08:15 → C.3E 09:10 → ENRESERV 13:39
PROVIDERS: ADMIT Orthopaedic Surgery Orthopaedic Surgery of the Spine; ATTEND Orthopaedic Surgery Orthopaedic Surgery of the Spine
DX: M48.06 Spinal stenosis, lumbar region (principal); M48.07 Spinal stenosis, lumbosacral region; E66.01 Morbid (severe) obesity due to excess calories; Z79.899 Other long term (current) drug therapy